=== PATIENT | female | born 1995 | race Caucasian/White ===

== ENCOUNTER 2018-11-25 11:04 | Outpatient (CLI) | payer OTHER ==
[~2018-11-25] VITALS: Ht 154.9 cm; Wt 82.6 kg
[~2018-11-25 11:04] MED LIST: CALC600T24 PO; FERR134T PO; FOLI0.4T2 PO; PREN-19 PO
[2018-11-25 11:17] VITALS: BP 139/79; Ht 154.9 cm; Wt 82.6 kg
--- NOTE | 2018-12-06 12:26 | PN ---
Triage Information Date/Time Reason for visit: Uterine contractions Weeks of Gestation 38 weeks and 2 days /Para 1 Diabetes: none Hypertention: none Objective Heart Rate: 130's Contractions: >10 Minutes Apart Results/Medications Imaging Results There is a single live intrauterine . cardiac activity is identified at a rate of 146 beats per minute. presentation is cephalic. Placenta is anterior grade II to III Biophysical profile score is as follows: Breathing 2 Movements 2 Tone 2 Fluid volume 2 Amniotic fluid index = 9.3 cm Total biophysical profile score = 8/8 IMPRESSION: Biophysical profile score = 8/8 Disposition: Discharge Assessment/Plan 23 years old 1 with single intrauterine at 38 weeks and 2 days with a DOTTIE of 12/07/2018 complaining of uterine contractions. She states good movement. She denies nausea, vomiting, shortness of breath, chest pain, abdominal pain, headache, visual changes, vaginal bleeding or LOF. FHR: No sign of metabolic acidosis- Category I. Ultrasound performed as noted above with normal KODI. Cervical exam 80/-2/cephalic/intact membrane. Repeat exam in 2 hours if no cervical changes she may discharge home. Symptoms and sign of labor, preeclampsia, kick count discussed with patient, she voiced understanding. All of her questions answered. I would like patient to have close follow-up with her primary physician or outpatient clinic in 1-2 days or return to triage for worsening symptoms or any other urgent concerns. DARBY DOTY Dec 06, 2018 12:26
== END 2018-11-25 13:38 | disposition home or self-care (01) ==
LOC: OBT 11:04 → L-D 11:04 → OBT 13:38
PROVIDERS: ATTEND Obstetrics & Gynecology
DX: O62.9 Abnormality of forces of labor, unspecified (principal); Z3A.38 38 weeks gestation of pregnancy
CPT/HCPCS: 76815; 76818; Z7500; G0463

== ENCOUNTER 2018-11-26 10:18 | Outpatient (CLI) | payer OTHER ==
[~2018-11-26] VITALS: Ht 154.9 cm; Wt 81.8 kg
[2018-11-26 10:46] VITALS: Ht 154.9 cm; Wt 81.8 kg
[2018-11-26 10:47] VITALS: BP 140/94; PULSE 95; RESP 20
--- NOTE | 2018-11-26 15:56 | PN ---
Triage Information Date/Time 11/26/2018 Reason for visit: Uterine contractions Weeks of Gestation 38 weeks and 3 days /Para Diabetes: none Hypertention: none Additional information 23-year-old with IUP at 38 weeks and 3 days presented with complaint of uterine contractions. She denies any leaking of fluid vaginal bleeding or de creased movement. Denies any headache, blurred vision epigastric pain or right upper quadrant pain.\ Objective Vital Signs Date Temp Pulse Resp B/P (MAP) Pulse Ox O2 O2 Flow FiO2 Time Delivery Rate 11/26/18 97.5 95 20 140/94 Room Air 10:47 (109) Heart Rate: 130's Heart Rate Comments Category 1 Contractions: < 5 Minutes Apart Exam General appearance: Alert and oriented x4 does not appear to be in any acute distress Abdomen: Soft, gravid, fundal height consider gestational age Sterile vaginal examination: 1.5/60/-3 No cervical change noted during 2-hour observation. B: 04/15 KODI: 9.3 Estimated weight: 29.7 percentile Results/Medications Imaging Results PROCEDURE: US OB biophysical profile. CLINICAL INDICATION: decreased movements, vaginal spotting TECHNIQUE: Multiple sonographic images of the pelvis were obtained. The images were reviewed on a PACS workstation. COMPARISON: US PELVIS 11/25/2018 FINDINGS: There is a single live intrauterine gestation. Cardiac activity is present with 140 beats per minute. There is a vertex presentation. The placenta is anterior. There is no evidence of placental abruption. There is a normal amount of amniotic fluid with an KODI = 13.3 cm. Biophysical profile: movement 2/2 tone 2/2. breathing 2/2 KODI 2/2 Total 04/15 RPTAT: AA . IMPRESSION: Normal biophysical profile. . Disposition: Discharge Assessment/Plan IUP at 38 weeks and 3 days Contractions, false labor pain No cervical change noted during observation testing reassuring Patient will be discharged home. Strict labor precautions kick count and follow-up within 48 hours with primary OB office or sooner as needed discussed with patient Patient verbalized understanding. FABIAN GONZALEZ MD Nov 26, 2018 15:55
--- NOTE | 2018-11-26 16:39 | TRIAGE ---
OB Triage Datetime Report Generated by CPN: 11/26/2018 16:38 Datetime: 11/26/2018 15:30 Labor Evaluation Frequency: 3-9 Monitor Mode: External Duration (sec)2399: 60-100 Quality: Strong Pattern: Normal: <= 5 Contractions in 10 Minutes Resting Tone [place]: Relaxed Heart Rate FHR Baseline Rate: 140 Monitor Mode: External US FHR Baseline Changes: No Baseline Change Variability: Moderate 6-25 bpm Accelerations: 15X15 Decelerations: None Category: Category I Pain Assessment Pain Scale: 5 Pain Presence: Intermittent Pain Type: Contraction Pain Location: Abdomen Pain Goal: 0 Datetime: 11/26/2018 14:26 Maternal Assessment Level of Consciousness: Fully Conscious DTR's/Clonus: DTRs 2+ Headache: Denies Blurred Vision: No Respiratory Effort: Unlabored Nausea/Vomiting: Denies RUQ Epigastric Pain: Denies Facial Edema: None Labor Evaluation Frequency: 2-5 Monitor Mode: External Duration (sec)2399: 10-30 Quality: Mild Pattern: Normal: <= 5 Contractions in 10 Minutes Resting Tone [place]: Relaxed Contraction Comments: "the contrations vary in intensity" Heart Rate FHR Baseline Rate: 135 Monitor Mode: External US Variability: Moderate 6-25 bpm Accelerations: 15X15 Decelerations: None Category: Category I Pain Assessment Pain Scale: 2 Pain Presence: Intermittent Pain Type: Cramping; Contraction Pain Location: Abdomen; Back; Perineum Pain Goal: 3 Pain Relief Measures: Comfort Measures Pain Assessment Comments: smiling, no grimace Vaginal Exam Dilatation (cms): 1.0 Effacement (%): 50 Station: -2 Exam By: camilla miranda rn Membrane Status: Intact Vaginal Bleeding: Normal Show Cervix, Consistency: Soft Cervix, Position: Posterior Presentation 'A': Cephalic Datetime: 11/26/2018 13:30 Labor Evaluation Frequency: 7-8 Monitor Mode: External Duration (sec)2399: 80 Quality: Strong Pattern: Normal: <= 5 Contractions in 10 Minutes Resting Tone [place]: Relaxed Heart Rate FHR Baseline Rate: 130 Monitor Mode: External US FHR Baseline Changes: No Baseline Change Variability: Moderate 6-25 bpm Accelerations: 15X15 Decelerations: None Category: Category I Pain Assessment Pain Scale: 9 Pain Presence: Intermittent Pain Type: Contraction Pain Location: Abdomen Pain Goal: 0 Datetime: 11/26/2018 12:30 Labor Evaluation Frequency: 3-8 Monitor Mode: External Duration (sec)2399: 60-120 Quality: Strong Pattern: Normal: <= 5 Contractions in 10 Minutes Resting Tone [place]: Relaxed Heart Rate FHR Baseline Rate: 130 Monitor Mode: External US FHR Baseline Changes: No Baseline Change Variability: Moderate 6-25 bpm Accelerations: 15X15 Decelerations: None Category: Category I Pain Assessment Pain Scale: 9 Pain Presence: Intermittent Pain Type: Contraction Pain Location: Abdomen Pain Goal: 0 Datetime: 11/26/2018 11:25 Labor Evaluation Frequency: 2-8 Monitor Mode: External Duration (sec)2399: 60-80 Quality: Strong Pattern: Normal: <= 5 Contractions in 10 Minutes Resting Tone [place]: Relaxed Heart Rate FHR Baseline Rate: 140 Monitor Mode: External US FHR Baseline Changes: No Baseline Change Variability: Moderate 6-25 bpm Accelerations: 15X15 Decelerations: None Category: Category I Pain Assessment Pain Scale: 9 Pain Presence: Intermittent Pain Type: Contraction Pain Location: Abdomen Pain Goal: 0 Membrane Status: Intact Datetime: 11/26/2018 10:37 Stage of : OB Triage Assessment Type: Triage Maternal Assessment Level of Consciousness: Fully Conscious DTR's/Clonus: DTRs 2+; No Clonus Headache: Denies Blurred Vision: No Respiratory Effort: Unlabored; Regular Rhythm; Equal Expansion Breath Sounds, Left: Clear and Equal Breath Sounds, Right: Clear and Equal Nausea/Vomiting: Denies RUQ Epigastric Pain: Denies Lower Extremities Edema: None Degree: None Upper Extremities Edema: None Degree: None Facial Edema: None Temperature Route: Axillary Fall Risk Assessment History of Falling: (0) No Secondary Diagnosis: (0) No Ambulatory Aid: (0) Bedrest/Nurse Assist IV Therapy: (0) No Gait: (0) Normal/Bedrest/Immobile Mental Status: (0) Oriented to Own Ability Fall Score: 0 Fall Risk Score Definition: No Risk: No action required Vaginal Exam Dilatation (cms): 1.5 Effacement (%): 60 Station: -3 Exam By: MAY Datetime: 11/26/2018 10:06 Time of Arrival: 11/26/2018 10:06 EGA: 38.3 Arrived By: Ambulatory Arrived From: Home Chief Complaint: UC'S Movement: Present Contractions: Regular Rupture of Membranes: Denies Vaginal Bleeding: None Vaginal Discharge: Present Recent Sexual Intercouse: Denies Abdominal Trauma: Not Applicable Patient Complaints: Contractions Time Provider Notified: 11/26/2018 11:37 Provider Notified: DR. MURRELL Initial Plan: EFM, VAGINAL EXAM Datetime: 11/25/2018 13:10 Comments: UP TO BR Datetime: 11/25/2018 13:01 Labor Evaluation Frequency: 1-7 Monitor Mode: External Duration (sec)2399: 60 Pattern: Normal: <= 5 Contractions in 10 Minutes Resting Tone [place]: Relaxed Heart Rate FHR Baseline Rate: 145 Monitor Mode: External US Variability: Moderate 6-25 bpm Accelerations: 15X15 Decelerations: None Category: Category I Datetime: 11/25/2018 12:49 Vaginal Exam Dilatation (cms): 1.0 Effacement (%): 60 Station: -3 Exam By: filemon saucedo Datetime: 11/25/2018 12:00 Stage of : OB Triage Labor Evaluation Frequency: 1-5 Monitor Mode: External Duration (sec)2399: 60 Pattern: Normal: <= 5 Contractions in 10 Minutes Resting Tone [place]: Relaxed Heart Rate FHR Baseline Rate: 145 Monitor Mode: External US Variability: Moderate 6-25 bpm Accelerations: 15X15 Decelerations: None Category: Category I Pain Assessment Pain Scale: 8 Pain Presence: Intermittent Pain Type: Cramping Pain Location: Abdomen Pain Goal: 0 Pain Relief Measures: Comfort Measures Datetime: 11/25/2018 11:39 Vaginal Exam Dilatation (cms): 1.0 Effacement (%): 60 Station: -3 Datetime: 11/25/2018 11:32 Stage of : OB Triage Labor Evaluation Frequency: 1-5 Monitor Mode: External Duration (sec)2399: 60 Pattern: Normal: <= 5 Contractions in 10 Minutes Resting Tone [place]: Relaxed Heart Rate FHR Baseline Rate: 155 Monitor Mode: External US Variability: Moderate 6-25 bpm Accelerations: 15X15 Decelerations: None Category: Category I Pain Assessment Pain Scale: 8 Pain Presence: Intermittent Pain Type: Contraction Pain Location: Abdomen Pain Goal: 0 Pain Relief Measures: Comfort Measures Datetime: 11/25/2018 11:12 Stage of : OB Triage Assessment Type: Triage Maternal Assessment Level of Consciousness: Fully Conscious DTR's/Clonus: DTRs 2+; No Clonus Headache: Denies Blurred Vision: No Respiratory Effort: Unlabored; Regular Rhythm; Equal Expansion Breath Sounds, Left: Clear and Equal Breath Sounds, Right: Clear and Equal Nausea/Vomiting: Denies RUQ Epigastric Pain: Denies Lower Extremities Edema: None Degree: None Upper Extremities Edema: None Degree: None Facial Edema: None Temperature Route: Oral Fall Risk Assessment History of Falling: (0) No Secondary Diagnosis: (0) No Ambulatory Aid: (0) Bedrest/Nurse Assist IV Therapy: (0) No Gait: (0) Normal/Bedrest/Immobile Mental Status: (0) Oriented to Own Ability Fall Score: 0 Fall Risk Score Definition: No Risk: No action required Monitor Mode: External (Annotations: INITIAL PLACEMENT ) Monitor Mode: INITIAL PLACEMENT Datetime: 11/25/2018 11:11 Time of Arrival: 11/25/2018 11:00 EGA: 38.2 Arrived By: Ambulatory Arrived From: Home Chief Complaint: UC'S Movement: Present Contractions: Regular Time Contractions Began: 11/25/2018 06:00 Contractions: Q 5 MINUTES Rupture of Membranes: Denies Vaginal Discharge: Denies Recent Sexual Intercouse: Denies Abdominal Trauma: Not Applicable Patient Complaints: Contractions Time Provider Notified: 11/25/2018 11:43 Provider Notified: dr. temple Initial Plan: PEG MONTANO MD VE Datetime: 10/17/2018 02:41 Stage of : OB Triage Heart Rate FHR Baseline Rate: 130 Monitor Mode: External US FHR Baseline Changes: No Baseline Change Variability: Moderate 6-25 bpm Accelerations: 15X15 Decelerations: None Datetime: 10/17/2018 01:57 Stage of : OB Triage Monitor Mode: External Quality: Mild Pattern: Normal: <= 5 Contractions in 10 Minutes Resting Tone [place]: Relaxed Heart Rate FHR Baseline Rate: 130 Monitor Mode: External US FHR Baseline Changes: No Baseline Change Variability: Moderate 6-25 bpm Accelerations: 15X15 Decelerations: None Category: Category I Pain Assessment Pain Scale: 2 Pain Presence: Intermittent Pain Type: Cramping Pain Location: Abdomen Datetime: 10/17/2018 01:25 Stage of : OB Triage Labor Evaluation Frequency: 2-15 Monitor Mode: External Duration (sec)2399: 10-20 Quality: Mild Pattern: Normal: <= 5 Contractions in 10 Minutes Resting Tone [place]: Relaxed Heart Rate FHR Baseline Rate: 130 Monitor Mode: External US FHR Baseline Changes: No Baseline Change Variability: Moderate 6-25 bpm Accelerations: 15X15 Decelerations: None Category: Category I Pain Assessment Pain Scale: 2 Pain Presence: Intermittent Pain Type: Cramping Pain Location: Abdomen Datetime: 10/17/2018 01:01 Stage of : OB Triage Monitor Mode: External Quality: Mild Pattern: Normal: <= 5 Contractions in 10 Minutes Resting Tone [place]: Relaxed Heart Rate FHR Baseline Rate: 130 Monitor Mode: External US FHR Baseline Changes: No Baseline Change Variability: Moderate 6-25 bpm Accelerations: 15X15 Decelerations: None Category: Category I Datetime: 10/17/2018 00:34 Stage of : OB Triage Monitor Mode: External Duration (sec)2399: 10-20 Quality: Mild Pattern: Normal: <= 5 Contractions in 10 Minutes Resting Tone [place]: Relaxed Heart Rate FHR Baseline Rate: 130 Monitor Mode: External US FHR Baseline Changes: No Baseline Change Variability: Moderate 6-25 bpm Accelerations: 15X15 Decelerations: None Category: Category I Pain Assessment Pain Scale: 3 Pain Presence: Intermittent Pain Type: Cramping Pain Location: Abdomen Datetime: 10/16/2018 23:32 Stage of : OB Triage Monitor Mode: External Quality: Mild Pattern: Normal: <= 5 Contractions in 10 Minutes Resting Tone [place]: Relaxed Heart Rate FHR Baseline Rate: 140 Monitor Mode: External US FHR Baseline Changes: No Baseline Change Variability: Moderate 6-25 bpm Accelerations: 15X15 Decelerations: Variable Category: Category II Amniotic Fluid Amount: None Pool: Negative Datetime: 10/16/2018 23:12 Stage of : OB Triage Labor Evaluation Frequency: 2-10 Monitor Mode: External Duration (sec)2399: 10-20se Quality: Mild Pattern: Normal: <= 5 Contractions in 10 Minutes Resting Tone [place]: Relaxed Heart Rate FHR Baseline Rate: 130 Monitor Mode: External US FHR Baseline Changes: No Baseline Change Variability: Moderate 6-25 bpm Accelerations: 15X15 Decelerations: None Category: Category I Pain Presence: Intermittent Pain Location: Abdomen Datetime: 10/16/2018 22:33 Stage of : OB Triage Maternal Assessment Level of Consciousness: Fully Conscious Headache: Denies Blurred Vision: No Respiratory Effort: Unlabored Nausea/Vomiting: Denies RUQ Epigastric Pain: Denies Facial Edema: None Monitor Mode: External Resting Tone [place]: Relaxed Heart Rate FHR Baseline Rate: 130 Monitor Mode: External US Pain Assessment Pain Scale: 7 Pain Presence: Intermittent Pain Type: Cramping Pain Location: Abdomen Datetime: 10/16/2018 22:30 Time of Arrival: 10/16/2018 22:12 EGA: 32.4 Arrived By: Wheelchair Arrived From: Home Chief Complaint: c/o mod gush of fluid 0900 w/ sm amt leaking through day and lower abd pain Movement: Present Contractions: Irregular Time Contractions Began: 10/16/2018 18:00 Rupture of Membranes: Unsure Vaginal Bleeding: None Vaginal Discharge: Present Recent Sexual Intercouse: Denies Abdominal Trauma: Not Applicable Patient Complaints: Cramping Time Provider Notified: 10/16/2018 23:16 Provider Notified: Dr Akins Initial Plan: EFM,SPECULUM,ROM+,EFW,CVL,KODI,CBC,UA
== END 2018-11-26 15:50 | disposition home or self-care (01) ==
LOC: OBT 10:18 → L-D 10:37 → OBT 15:50
PROVIDERS: ATTEND Obstetrics & Gynecology
DX: O62.9 Abnormality of forces of labor, unspecified (principal); Z3A.38 38 weeks gestation of pregnancy
CPT/HCPCS: 76818; Z7500; G0463

== ENCOUNTER 2018-11-28 03:54 | Inpatient (IN) | payer OTHER ==
[~2018-11-28] VITALS: Ht 154.9 cm; Wt 73.0 kg
[2018-11-28 04:24] VITALS: BP 121/83; PULSE 81; RESP 18
--- NOTE | 2018-11-28 05:33 | PN ---
Triage Information Date/Time Reason for visit: Uterine contractions Weeks of Gestation 38w 4d /Para Objective Vital Signs Date Temp Pulse Resp B/P (MAP) Pulse Ox O2 O2 Flow FiO2 Time Delivery Rate 11/28/18 98.5 81 18 121/83 Room Air 04:24 (96) Heart Rate Comments reactive Contractions: >10 Minutes Apart Exam SVE 2/60/-2 Disposition: Discharge Assessment/Plan 23 y/o at 38w 4d with contractions -recheck cervix -discharge home if no cervical change. Precautions given. FRANKLIN RENEE Nov 28, 2018 05:33
--- NOTE | 2018-11-28 07:05 | HP ---
Date/Time of Note Date/Time of Note DATE: 11/28/18 TIME: 07:03 OB - History Hx of Present Chief Complaint: Contractions Estimated Due Date: Dec 08, 2018 : 1 Para: 0 Care: Good Care Ultrasounds: Normal mid trimester US Obstetrical Complications: None Medical Complications: None Past Family/Social History * Past Medical, Surgical, Family and Obstetric Histories reviewed from chart. GBS Status: Negative OB Admission Exam Vital Signs Vital Signs Vital Signs Date Temp Pulse Resp B/P (MAP) Pulse Ox O2 O2 Flow FiO2 Time Delivery Rate 11/28/18 98.5 81 18 121/83 Room Air 04:24 (96) Physical Exam HEENT: WNL Heart: Rhythm Normal Lungs: Clear Abdomen: WNL Extremities: Normal Cervical Dilatation: 4cm Effacement: 100% Station: -2 Membranes: Intact Accelerations: Accelerations Present Decelerations: No Decelerations Varibility: Moderate Contractions on Admission: 6-10 Minutes Apart Intensity: Moderate OB Assessment/Plan Reason for admission: active labor Plan: Expectant Management FRANKLIN RENEE Nov 28, 2018 07:05
[2018-11-28] MEDS ORDERED: LACTATED RINGER'S 1,000 ML IV PRN (07:06)
[2018-11-28] MEDS ORDERED: OXYTOCIN 30 UNITS/LR 500 ML IV PRN (07:30)
[2018-11-28] MEDS ORDERED: BUTORPHANOL 1 MG INJ IV PRN (07:30)
[2018-11-28] MEDS ORDERED: CARBOPROST 250 MCG INJ IM PRN (07:30)
[2018-11-28] MEDS ORDERED: MISOPROSTOL 200 MCG TAB PR PRN (07:30)
[2018-11-28] MEDS ORDERED: OXYTOCIN 30 UNITS/LR 500 ML IV SCH ×3 (07:30→08:30)
[2018-11-28] MEDS ORDERED: IBUPROFEN 600 MG TAB PO PRN (07:30)
[2018-11-28] MEDS ORDERED: METHYLERGONOVINE 0.2 MG INJ IM PRN (07:30)
[2018-11-28] MEDS ORDERED: BUTORPHANOL 2 MG INJ IV PRN (07:30)
[2018-11-28] MEDS ORDERED: LIDOCAINE 1% (MPF) 30 ML INJ INJ PRN (07:30)
[2018-11-28] MEDS: LACTATED RINGER'S 1,000 ML IV SCH ×6 (08:59→22:23)
[2018-11-28] MEDS ORDERED: FENTAnyl 2MCG/ML-ROPIV 0.2% 100 ML ONE (17:19)
--- NOTE | 2018-11-28 17:43 | PREAC ---
Date/Time of Note Date/Time of Note DATE: 11/28/18 TIME: 17:40 Anesthesia Eval and Record Evaluation Time Pre-Procedure Interview DATE: 11/28/18 TIME: 17:16 Age 23 Sex female NPO: 8 hrs Preoperative diagnosis iup @ 39 wks., , labor Planned procedure layne Past Medical History Past Medical History: Includes : : (1), Para: (0), Gestational age: (39.5 wks.) Surgery & Anesthesia Issues No known issue Meds Anticoagulation: No Beta Patria within 24 hr: No Reason Beta Patria not given: Pt. not on B-Patria Reported Medications Calcium Carbonate* (Calcium Carbonate*) 600 MG Ca Tab, 600 MG PO DAILY, TAB 10/16/18 Folic Acid* (Folic Acid*) 0.4 Mg Tablet, 0.4 MG PO DAILY, TAB 10/16/18 Vit #76/Iron,Carb/FA (Prenatabs Rx Tablet) 1 Each Tablet, 1 EACH PO DAILY, TAB 10/16/18 Ferrous Sulfate (Iron) 134 Mg Tablet, 134 MG PO DAILY, TAB 10/16/18 Current Medications Lactated Ringer's 1,000 ml @ 125 mls/hr Q8H IV Last administered on 11/28/18at 17:17; Admin Dose 125 MLS/HR; Start 11/28/18 at 07:06 Butorphanol Tartrate (Stadol) 1 mg Q2H PRN IV .PAIN; Start 11/28/18 at 07:30 Butorphanol Tartrate (Stadol) 2 mg Q2H PRN IV .PAIN; Start 11/28/18 at 07:30 Lidocaine (Xylocaine 1% (Mpf)) 30 ml ONCE PRN INJ .EPISIOTOMY; Start 11/28/18 at 07:30 Oxytocin/Lactated Ringer's 500 ml @ 500 mls/hr ONCE POST IV ; Start 11/28/18 at 07:30 Oxytocin/Lactated Ringer's 500 ml @ 125 mls/hr POST IV ; Start 11/28/18 at 07:30 Ibuprofen (Motrin) 600 mg ONCE PRN PO .PAIN 1-5; Start 11/28/18 at 07:30 Lactated Ringer's 1,000 ml @ 2,000 mls/hr Q30M PRN IV .ANESTHESIA; Start 11/28/18 at 07:06 Oxytocin/Lactated Ringer's 500 ml @ 0 mls/hr ONCE PRN IV .VAGINAL BLEEDING; Start 11/28/18 at 07:30 Methylergonovine Maleate (Methergine) 0.2 mg ONCE PRN IM .VAGINAL BLEEDING; Start 11/28/18 at 07:30 Carboprost Tromethamine (Hemabate) 250 mcg ONCE PRN IM .VAGINAL BLEEDING; Start 11/28/18 at 07:30 Misoprostol (Cytotec) 1,000 mcg ONCE PRN [place] .VAGINAL BLEEDING; Start 11/28/18 at 07:30 Oxytocin/Lactated Ringer's 500 ml @ 0 mls/hr Q0M IV Last administered on 11/28/18at 11:46; Admin Dose 1 MLS/HR; Start 11/28/18 at 08:30 Meds reviewed: Yes Allergies Coded Allergies: No Known Allergies (Verified Allergy, Unknown, 11/28/18) Allergies Reviewed: Yes Labs/Studies Labs Reviewed: Reviewed by anesthesiologist Result Diagram: 11/28/18 0725 11/28/18 0840 Laboratory Tests 11/28/18 07:25 11/28/18 08:40 Blood Bank Test 11/28/18 07:25 Antibody Screen NEGATIVE Blood Type B POSITIVE Rh Immune Globulin Candidate NO test: Positive Studies: ECG (n/a), CXR (n/a) Pre-procedure Exam Last vitals Vital Signs Date Temp Pulse Resp B/P (MAP) Pulse Ox O2 O2 Flow FiO2 Time Delivery Rate 11/28/18 98.5 81 18 121/83 Room Air 04:24 (96) Airway: Adequate mouth opening, Adequate thyromental dist Mallampati: Mallampati II Teeth: Normal Lung: Normal Heart: Normal ASA Physical Status ASA physical status: 2 Emergency: E Planned Anesthetic Neuraxial: Epidural Planned Pain Management Epidural, Local by surgeon Pre-operative Attestations Prior to commencing anesthesia and surgery, the patient was re-evaluated, there was verification of: *The patient's identity *The results of appropriate recent lab work and preoperative vital signs *The above evaluation not changing prior to induction *Anesthetic plan, risk benefits, alternative and complications discussed with patient/family; questions answered; patient/family understands, accepts and w ishes to proceed. Natural Resource Technician used HODA GERMAN MD Nov 28, 2018 17:43
--- NOTE | 2018-11-28 17:43 | PAC ---
Date/Time of Note Date/Time of Note DATE: 11/29/18 TIME: 10:00 Post-Anesthesia Notes Post-Anesthesia Note Last documented vital signs Vital Signs Date Temp Pulse Resp B/P (MAP) Pulse Ox O2 O2 Flow FiO2 Time Delivery Rate 11/28/18 98.5 81 18 121/83 Room Air 04:24 (96) Activity: WNL Respiratory function: WNL Cardiovascular function: WNL Mental status: Baseline Pain reasonably controlled: Yes Hydration appropriate: Yes Nausea/Vomiting absent: Yes HODA GERMAN MD Nov 28, 2018 17:43
[2018-11-28] MEDS ORDERED: NALOXONE (0.4 MG/ML) INJ IV PRN (18:00)
--- NOTE | 2018-11-28 21:27 | QN ---
Documentation Comment patient seen and evaluated no complaints vs stable afebrile ab gravid nt extremity no edema no calf tenderness ve 4/80/-2 arom clear a/ iup at 38 wks ga in labor admitted for labor augmentation with pitocin p/ anticipate vaginal delivery LOKI MURRELL MD Nov 28, 2018 21:27
[2018-11-28] MEDS: FENTAnyl 2MCG/ML-ROPIV 0.2% 100 ML BAG EPI SCH (22:44)
[2018-11-29] MEDS: LACTATED RINGER'S 1,000 ML IV SCH (03:27)
[2018-11-29] MEDS: FENTAnyl 2MCG/ML-ROPIV 0.2% 100 ML BAG EPI SCH (04:28)
[2018-11-29] MEDS ORDERED: DEXTROSE 5%-LR 1,000 ML IV SCH (05:30)
[2018-11-29] MEDS ORDERED: MINERAL OIL 30ML CUP PO ONE (11:00)
[2018-11-29] MEDS ORDERED: OXYTOCIN 30 UNITS/LR 500 ML IV SCH (11:24)
--- NOTE | 2018-11-29 11:24 | LDN ---
Date/Time of Note Date/Time of Note DATE: 11/29/18 TIME: 11:22 Delivery Summary Weeks of Gestation 38 Assisted Vaginal Delivery: Vacuum (secondary to maternal exhaustion, plus 3 statation 1 pull for 7 seconds) Placenta Delivered: Spontaneously Meconium: none Episiotomy: No Laceration repair: 1st degree vaginal laceration repair with 3-0 chromic Anesthesia type: Epidural Estimated blood loss: 150 Sponge & Needle done & correct: Yes All needle counts correct: Yes Any foreign bodies felt in the: No Delivery Information Sex Infant Sex: male Apgars 1 Minute: 8 5 Minute: 9 Suctioning Nose & mouth suctioned at dima: No Delee suction performed: No Umbilical Cord Umbilical cord with: 3 Vessels Cord presentations: no nuchal cord Cord Blood was obtained: Yes LOKI MURRELL MD Nov 29, 2018 11:24
[2018-11-29] MEDS ORDERED: CARBOPROST 250 MCG INJ IM PRN (11:30)
[2018-11-29] MEDS ORDERED: LANOLIN HPA 1 PKT TOP PRN (11:30)
[2018-11-29] MEDS ORDERED: OXYTOCIN 30 UNITS/LR 500 ML IV PRN (11:30)
[2018-11-29] MEDS ORDERED: WITCH HAZEL/GLYCERIN PAD PR PRN (11:30)
[2018-11-29] MEDS ORDERED: MISOPROSTOL 200 MCG TAB PR PRN (11:30)
[2018-11-29] MEDS ORDERED: NACL 0.9% 3 ML SYG IV SCH (11:30)
[2018-11-29] MEDS ORDERED: MINERAL OIL LIGHT 10 ML VIAL TOP ONE (11:30)
[2018-11-29] MEDS ORDERED: OXYCODONE/ASPIRIN (4.88/325) TAB PO PRN ×2 (11:30)
[2018-11-29] MEDS ORDERED: METHYLERGONOVINE 0.2 MG INJ IM PRN (11:30)
[2018-11-29] MEDS ORDERED: ACETAMINOPHEN 325 MG TAB PO PRN (11:30)
[2018-11-29] MEDS ORDERED: ONDANSETRON 4 MG INJ IV PRN (11:30)
[2018-11-29 14:17] VITALS: BP 131/83; RESP 20
[2018-11-29] MEDS: IBUPROFEN 600 MG TAB PO SCH ×2 (14:50→17:55)
[2018-11-29 17:35] VITALS: BP 112/66; PULSE 66; RESP 18
[2018-11-29 20:15] VITALS: BP 131/67; PULSE 63; RESP 20
[2018-11-29] MEDS: SENNA/DOCUSATE NA (8.6MG/50MG) TAB PO SCH (21:00)
[2018-11-30] MEDS: IBUPROFEN 600 MG TAB PO SCH ×5 (00:40→23:28)
[2018-11-30 05:14] VITALS: BP 104/68; PULSE 54; RESP 18
--- NOTE | 2018-11-30 07:40 | PD.PPDC ---
MEAT BONER Discharge Instruction Condition [id number] Patient Condition: [id number] Fair Diet [id number] Diet: Ucuzq1n Resume Regular Diet Activity/Restrictions [id number] Activity: Uqhay0s Normal Activity May Shower [id number] Restrictions: [id number] No Exercising No Lifting No Driving No Sexual Activity Nothing in the Vagina No [place] No Tampons, douche Follow-up Follow-up with Physician: 2, Week/Weeks Return to clinic for [id number] RETAIL CASHIER ASSOCIATE Instructions: [id number] Fever greater than 101 Chills Worsening abdominal pain Excessive Vaginal Bleeding More than 2 pads per hour Unable to tolerate diet [id number] OB Instructions: [id number] Breast Tenderness Depression Blurried Vision Headache [id number] Surgical Instructions: [id number] Incisional Drainage Incisional Redness LOKI MURRELL MD Nov 30, 2018 07:40
--- NOTE | 2018-11-30 07:42 | DS ---
Date/Time of Note Date/Time of Note DATE: 11/30/18 TIME: 07:41 Obstetrical Discharge Record Final Diagnosis Final Diagnosis: Term delivered Vaginal Delivery Obstetrical Delivery: Spontaneous Complications Preg induced Hypertension Augmentation: Yes Induction: No Condition on Discharge Physical Assessment Last Vitals: stable afebrile Voiding: Yes Bowel Movement: Yes Breast: Soft, non-tender, Filling Fundus: Firm Abdomen and Incision: soft nt Calf Tenderness: No Patient Condition: Fair LOKI MURRELL MD Nov 30, 2018 07:42
[2018-11-30 08:30] VITALS: BP 120/83; PULSE 69; RESP 19
[2018-11-30] MEDS ORDERED: FOLIC ACID 0.4 MG TAB PO SCH (09:00)
[2018-11-30] MEDS ORDERED: CA CARBONATE (250 MG/ML) 5ML CUP PO SCH (09:00)
[2018-11-30] MEDS ORDERED: FERROUS SULFATE 220 MG/5 ML ML PO SCH (09:00)
[2018-11-30] MEDS ORDERED: NON-FORMULARY/PATIENT OWN MED (Calcium Carbonate* 600 MG) PO SCH (09:00)
[2018-11-30] MEDS ORDERED: FERROUS SULFATE 60 MG/ML 5ML CUP PO SCH (09:00)
[2018-11-30] MEDS ORDERED: NON-FORMULARY/PATIENT OWN MED (Ferrous Sulfate (Iron) 134 MG) PO SCH (09:00)
[2018-11-30] MEDS: SENNA/DOCUSATE NA (8.6MG/50MG) TAB PO SCH ×2 (09:35→21:54)
[2018-11-30] MEDS: PRENATAL VITAMIN PO SCH (09:35)
[2018-11-30 15:50] VITALS: BP 121/64; PULSE 67; RESP 20
[2018-11-30 20:05] VITALS: BP 128/92; PULSE 70; RESP 18
[2018-11-30] MEDS: FERROUS SULFATE (EC) 325 MG TAB PO SCH (21:54)
[2018-12-01 03:45] VITALS: BP 139/63; PULSE 63; RESP 20
[2018-12-01] MEDS: IBUPROFEN 600 MG TAB PO SCH ×2 (05:27→12:09)
[2018-12-01 07:50] VITALS: BP 113/69; PULSE 57; RESP 17
[2018-12-01] MEDS: PRENATAL VITAMIN PO SCH (09:39)
[2018-12-01] MEDS: FERROUS SULFATE (EC) 325 MG TAB PO SCH (09:39)
[2018-12-01] MEDS: SENNA/DOCUSATE NA (8.6MG/50MG) TAB PO SCH (09:39)
--- NOTE | 2018-12-02 14:36 | DELSUM ---
Delivery Summary A-C Datetime Report Generated by CPN: 12/02/2018 14:10 DELIVERY PERSONNEL Powerhouse Attendant: Ghukasyan, Renee MATERNAL INFORMATION Delivery Anesthesia: Epidural Medications in Delivery: pitocin 30 units Delivery QBL (ml): 150 Placenta Cultured: No Maternal Complications: None RN Comments: pt arrived in active labor LABOR SUMMARY EDC: 12/08/2018 00:00 No. Babies in Womb: 1 Attempted: No Labor Anesthesia: Epidural LABOR INFORMATION Reason for Induction: Not Applicable Onset of Labor: 11/28/2018 00:00 Complete Dilatation: 11/29/2018 08:20 Oxytocin: Augmentation Group B Beta Strep: Negative Antibiotics # of Doses: 0 Steroids Given: None Reason Steroids Not Administered: Not Applicable MEMBRANES Membranes Rupture Method: Artificial Rupture of Membranes: 11/28/2018 21:06 Length of Rupture (hr): 14.05 Amniotic Fluid Color: Bloody Amniotic Fluid Amount: Moderate Amniotic Fluid Odor: None STAGES OF LABOR Stage 1 hr: 32 Stage 1 min: 20 Stage 2 hr: 2 Stage 2 min: 49 Stage 3 hr: 0 Stage 3 min: 2 Total Time in Labor hr: 35 Total Time in Labor min: 11 VAGINAL DELIVERY Episiotomy: None Laceration Extension: First Degree Laceration Type: Vaginal Laceration Repair: Yes Initial Vag Sponge Count: 10 Final Vag Sponge Count: 10 Initial Vag Sharps Count: 1 Final Vag Sharps Count: 3 Sponge Count Correct: Yes Sharps Count Correct: Yes Count Comment: two sharps added during delivery BABY A INFORMATION Delivery Date/Time: 11/29/2018 11:09 Method of Delivery: Vaginal Born in Route : No : N/A Forceps: N/A Vacuum Extraction: Successful Shoulder Dystocia : N/A ASSISTED DELIVERY BABY A Indication for Assisted Delivery: see MD notes SHOULDER DYSTOCIA BABY A Infant Delivery Date/Time: 11/29/2018 11:09 PRESENTATION/POSITION BABY A Presentation: Cephalic Cephalic Presentation: Vertex Vertex Position: Left Occipital Anterior Breech Presentation: N/A PLACENTA INFORMATION BABY A Placenta Delivery Time : 11/29/2018 11:11 Placenta Method of Delivery: Spontaneous Placenta Status: Delivered SCORES BABY A Heart Rate 1 min: >100 bpm Resp Effort 1 min: Good Cry Reflex Irritability 1 min: Cough/Sneeze/Pulls Away Muscle Tone 1 min: Active Motion Color 1 min: Blue/Pale SCORE 1 MIN: 8 Heart Rate 5 min: >100 bpm Resp Effort 5 min: Good Cry Reflex Irritability 5 min: Cough/Sneeze/Pulls Away Muscle Tone 5 min: Active Motion Color 5 min: Body [place], Extremit Blue SCORE 5 MIN: 9 INFANT INFORMATION BABY A Gestational Age at Delivery: 38.5 Gestational Status: Early Term- 37- 38.6 Weeks Outcome : Liveborn Infant Condition : Stable Sex: Male IDENTIFICATION/MEDS BABY A ID Band Number: [id number] ID Band Location: Right Leg; Left Arm Sensor Applied: Yes Sensor Number: [id number] Sensor Location : Cord Clamp Vitamin K Given : Left Thigh Erythromycin Given: Given Both Eyes WEIGHT/LENGTH BABY A Infant Birthweight (gm): 3135 Weight (lb): 6 Infant Weight (oz): 15 Infant Length (in): 20.00 Infant Length (cm): 50.80 CORD INFORMATION BABY A No. Cord Vessels: 3 Nuchal Cord : Around Neck x1, Tight Cord Blood Taken: Yes Suction: Mouth; Nose ASSESSMENT BABY A Infant Complications: Decreased Variability; Multiple Variable Decels Physical Findings at Delivery: Caput Succedaneum; Molding of the Head Infant Respirations: Appears Normal Monitoring Tech/ALS Called : No Infant Care By: MICHELLE Thomas RN Transferred To: Remains with Mother
== END 2018-12-01 14:10 | disposition home or self-care (01) | DRG 807 ==
LOC: OBT 03:54 → L-D 03:57 → OBT 06:57 → L-D 07:45 → PP1 11-29 13:16
PROVIDERS: ADMIT Obstetrics & Gynecology; ATTEND Obstetrics & Gynecology
PROC: 10D07Z6 Extraction of Products of Conception, Vacuum, Via Natural or Artificial Opening (ICD-10-PCS; principal; 2018-11-29)
PROC: 0HQ9XZZ Repair Perineum Skin, External Approach (ICD-10-PCS; 2018-11-29)
DX: O75.81 Maternal exhaustion complicating labor and delivery (principal); O13.4 Gestational [pregnancy-induced] hypertension without significant proteinuria, complicating childbirth; O70.0 First degree perineal laceration during delivery; Z37.0 Single live birth; Z3A.38 38 weeks gestation of pregnancy
CPT/HCPCS: 62319; 80053; 81001; 84560; 85014; 85018; 85025; 85384; 85610; 85730; 86592; 86850; 86900; 86901; 87340; 99464; G0463; J2590; J3010; J7120; J7121